=== PATIENT | female | born 1950 | race Caucasian/White ===

== ENCOUNTER 2016-08-11 05:23 | Emergency (ER) | payer BC ==
[~2016-08-11] VITALS: Ht 170.2 cm; Wt 76.0 kg
[2016-08-11 05:33] VITALS: TEMP 36.6; Ht 170.2 cm; Wt 76.0 kg
[2016-08-11] MEDS ORDERED: KETOROLAC TROMETHAMINE 30 MG/ML VIAL IV STA (05:35)
[2016-08-11] MEDS ORDERED: MoRPHine SULFATE 4 MG/ML 1 ML CARP\\VIAL IV ONE (05:45)
[2016-08-11] MEDS ORDERED: SODIUM CHLORIDE 0.9% 1000ML 1,000 ML IV ONE (05:45)
[2016-08-11] MEDS ORDERED: DEXAMETHASONE SOD INJ 10 MG/ML VIAL IV ONE (05:45)
[2016-08-11 06:03] LABS: BASO % 0.2 %; BASO ABS # 0.01 K/uL (0-0.2); COMPLETE YES; EOS % 0.2 %; HEMATOCRIT 41.9 % (37-47); LYMPH % 15.9 %; MEAN CORPUSCULAR HEMOGLOBIN 28.1 pg (25-34); MEAN CORPUSCULAR HGB CONC 32.7 g/dl (32-36); MEAN PLATELET VOLUME 11.6 fL (7.4-10.4); MONO % 3.8 %; NEUT % 79.9 %; PLATELET COUNT 165 K/uL (130-400); RED BLOOD COUNT 4.87 M/uL (4.2-5.4); WHITE BLOOD COUNT 6.27 K/uL (4.8-10.8)
[2016-08-11 06:18] LABS: BUN/CREATININE RATIO 16.5 (10-20); CALCIUM 8.6 mg/dl (8.5-10.1); CREATININE 0.58 mg/dl (0.60-1.20); MAGNESIUM 2.4 mg/dl (1.8-2.4); POTASSIUM 3.8 mmol/L (3.5-5.1)
[2016-08-11 06:29] LABS: ALB/GLOB RATIO 1.5 (0.9-2); THYROID STIMULATING HORMONE 1.18 uIu/ml (0.300-4.500)
[2016-08-11] MEDS ORDERED: CHOL2000 PO (06:33)
[2016-08-11] MEDS ORDERED: CALC-20 PO (06:33)
[2016-08-11 06:50] LABS: LYME DISEASE AB IGG NEG (NEG); LYME DISEASE AB IGM NEG (NEG)
[2016-08-11 06:58] VITALS: BP 134/74; PULSE 67; O2SAT 95
[2016-08-11] MEDS ORDERED: HYDR-5688 PO (07:19)
[2016-08-11] MEDS ORDERED: METH4PAK PO (07:19)
--- NOTE | 2016-08-11 07:35 | DIAGNOSTIC IMAGING REPORT ---
LUMBAR SPINE 5 VIEWS HISTORY: low back pain COMPARISON: None. FINDINGS: There is no fracture. No subluxation. There are 6 lumbar-type vertebral bodies. Mild disc space narrowing at L6 S1. Minimal dextroscoliosis. IMPRESSION: No fracture or subluxation within the lumbar spine. Mild degenerative disc disease at L6 S1. Electronically signed by: Julius Armendariz M.D. 08/11/2016 7:34 AM Dictated Date/Time: 08/11/2016 7:32 AM
--- NOTE | 2016-08-11 07:38 | DIAGNOSTIC IMAGING REPORT ---
CHEST 2 VIEWS ROUTINE HISTORY: abnormal ekg COMPARISON: None. FINDINGS: Question of a small left suprahilar density. The right lung is clear. The heart is normal in size. No pleural effusions. No pneumothorax. IMPRESSION: Question of a small left suprahilar density. Repeat PA and lateral views of the chest with apical lordotic views is recommended for further evaluation. Electronically signed by: Julius Armendariz M.D. 08/11/2016 7:37 AM Dictated Date/Time: 08/11/2016 7:34 AM
--- NOTE | 2016-08-11 22:14 | EMERGENCY ROOM VISIT NOTE ---
History First contact with patient: 05:24 Chief Complaint: BACK PAIN Stated Complaint: BACK PAIN History of Present Illness The patient is a 66 year old female who presents to the Emergency Room with complaints of low back pain worsening over the past one to 2 days. The patient works as a domestic housekeeper, and has had some mild low back pain for the past. She went to bed last evening and was feeling well. She woke up in the night she attempted to get out of bed to use the bathroom, and had significant pain. She asked her to help her out of bed, and he was not able to assist her with getting to the bathroom. Because of this the contacted 911, and EMS arrived on scene. The patient was medicated with 80 g fentanyl and was able to ambulate and use the bathroom without difficulty after analgesia. She was able to ride in the ambulance and now presents for evaluation. The patient does not recall distinct injury or trauma to explain her symptoms. She does not have numbness or paresthesias. She is without flank pain or abdominal pain. The patient was placed on a ekg monitor by EMS in route, and they did notice that she had a sinus arrhythmia. The patient is without any chest pain, chest tightness, or shortness of breath. She considers herself otherwise usually healthy. Review of Systems More than 10 systems were reviewed and otherwise negative with the exception of history of present illness. Past Medical/Surgical History No chronic medical disease Family History No pertinent family history Social History Smoking Status: Never Smoker Housing Status: lives with family Current/Historical Medications Scheduled Calcium Carbonate-Vitamin D (Calcium 600 + D), 1 TAB PO DAILY Cholecalciferol (Vitamin D3), 1 CAP PO DAILY Methylprednisolone (Medrol Dosepak), 1 PKT PO DIRECTED Scheduled PRN Hydrocodone/Acetaminophen 5MG/325MG ([place] 5MG/325MG), 1 TABLET PO Q6 PRN for Pain Allergies Coded Allergies: No Known Allergies (Unverified , 08/11/16) Physical Exam Vital Signs Date Time Temp Pulse Resp B/P Pulse Ox O2 Delivery O2 Flow Rate FiO2 08/11/16 06:58 67 14 134/74 95 Room Air 08/11/16 05:38 Room Air 08/11/16 05:34 60 08/11/16 05:33 36.6 63 18 136/84 94 Room Air Pain Rating (0-10): 3.0 Physical Exam VITALS: Vitals are noted on the nurse's note and reviewed by myself. Vital signs stable. GENERAL: Well-developed, well-nourished, white female, who is in no acute distress and resting comfortably. Patient is cooperative with the examination. HEAD: Normocephalic atraumatic. HEART: Regular rate and rhythm without murmurs gallops or rubs. LUNGS: Clear to auscultation bilaterally without wheezes, rales or rhonchi. No retractions or accessory muscle use. ABDOMEN: Positive normal bowel sounds x 4. Soft, nontender, without masses or organomegaly. No guarding or rebound tenderness. MUSCULOSKELETAL: No muscle atrophy, erythema, or edema noted. Mild lower lumbar spine tenderness with SI joint tenderness. No significant paravertebral spasm. Negative straight leg raise. No saddle paresthesias. Neurovascular status intact distally. NEURO: Patient was alert and oriented to person place and time. CN II through XII grossly intact. Deep tendon reflexes 2+ throughout. Medical Decision & Procedures ER Provider Diagnostic Interpretation: CHEST 2 VIEWS ROUTINE HISTORY: abnormal ekg COMPARISON: None. FINDINGS: Question of a small left suprahilar density. The right lung is clear. The heart is normal in size. No pleural effusions. No pneumothorax. IMPRESSION: Question of a small left suprahilar density. Repeat PA and lateral views of the chest with apical lordotic views is recommended for further evaluation. LUMBAR SPINE 5 VIEWS HISTORY: low back pain COMPARISON: None. FINDINGS: There is no fracture. No subluxation. There are 6 lumbar-type vertebral bodies. Mild disc space narrowing at L6 S1. Minimal dextroscoliosis. IMPRESSION: No fracture or subluxation within the lumbar spine. Mild degenerative disc disease at L6 S1. Laboratory Results 08/11/16 05:45 Red Blood Count 4.87, Mean Corpuscular Volume 86.0, Mean Corpuscular Hemoglobin 28.1, Mean Corpuscular Hemoglobin Concent 32.7, Mean Platelet Volume 11.6, Neutrophils (%) (Auto) 79.9, Lymphocytes (%) (Auto) 15.9, Monocytes (%) (Auto) 3.8, Eosinophils (%) (Auto) 0.2, Basophils (%) (Auto) 0.2, Neutrophils # (Auto) 5.01, Lymphocytes # (Auto) 1.00, Monocytes # (Auto) 0.24, Eosinophils # (Auto) 0.01, Basophils # (Auto) 0.01 08/11/16 05:45 Test 08/11/16 05:45 08/11/16 05:48 White Blood Count 6.27 K/uL (4.8-10.8) Red Blood Count 4.87 M/uL (4.2-5.4) Hemoglobin 13.7 g/dL (12.0-16.0) Hematocrit 41.9 % (37-47) Mean Corpuscular Volume 86.0 fL (80-100) Mean Corpuscular Hemoglobin 28.1 pg (25-34) Mean Corpuscular Hemoglobin Concent 32.7 g/dl (32-36) Platelet Count 165 K/uL (130-400) Mean Platelet Volume 11.6 fL (7.4-10.4) Neutrophils (%) (Auto) 79.9 % Lymphocytes (%) (Auto) 15.9 % Monocytes (%) (Auto) 3.8 % Eosinophils (%) (Auto) 0.2 % Basophils (%) (Auto) 0.2 % Neutrophils # (Auto) 5.01 K/uL (1.4-6.5) Lymphocytes # (Auto) 1.00 K/uL (1.2-3.4) Monocytes # (Auto) 0.24 K/uL (0.11-0.59) Eosinophils # (Auto) 0.01 K/uL (0-0.5) Basophils # (Auto) 0.01 K/uL (0-0.2) RDW Standard Deviation 43.0 fL (36.4-46.3) RDW Coefficient of Variation 13.6 % (11.5-14.5) Immature Granulocyte % (Auto) 0.0 % Immature Granulocyte # (Auto) 0.00 K/uL (0.00-0.02) Anion Gap 8.0 mmol/L (3-11) Est Creatinine Clear Calc Drug Dose 104.2 ml/min Estimated GFR () 112.9 Estimated GFR (Non- 97.4 BUN/Creatinine Ratio 16.5 (10-20) Calcium Level 8.6 mg/dl (8.5-10.1) Magnesium Level 2.4 mg/dl (1.8-2.4) Total Bilirubin 0.3 mg/dl (0.2-1) Aspartate Amino Transf (AST/SGOT) 11 U/L (15-37) Alanine Aminotransferase (ALT/SGPT) 25 U/L (12-78) Alkaline Phosphatase 61 U/L (45-117) Total Protein 6.6 gm/dl (6.4-8.2) Albumin 4.0 gm/dl (3.4-5.0) Globulin 2.6 gm/dl (2.5-4.0) Albumin/Globulin Ratio 1.5 (0.9-2) Lipase 163 U/L (73-393) Thyroid Stimulating Hormone (TSH) 1.180 uIu/ml (0.300-4.500) Lyme Disease IgG Antibody NEG (NEG) Lyme Disease IgM Antibody NEG (NEG) Bedside Troponin I 0.000 ng/ml (0-0.045) Medications Administered Medications (Trade) Dose Ordered Sig/Ike Route Start Time Stop Time Status Last Admin Dose Admin Ketorolac Tromethamine (Toradol Inj) 30 mg NOW STAT IV 08/11/16 05:35 08/11/16 05:37 DC 08/11/16 05:48 30 MG Dexamethasone Sodium Phosphate (Decadron Inj) 10 mg NOW ONCE IV 08/11/16 05:45 08/11/16 05:46 DC 08/11/16 05:49 10 MG Morphine Sulfate 4 mg 4 mg NOW ONCE IV 08/11/16 05:45 08/11/16 05:46 DC 08/11/16 05:49 4 MG Sodium Chloride (Nss 1000ml) 1,000 ml @ 999 mls/hr Q1H1M ONCE IV 08/11/16 05:45 08/11/16 06:45 DC 08/11/16 05:45 999 MLS/HR ECG Change: Sinus bradycardia with 1st degree A-V block Block atrial premature beat Otherwise normal ECG No previous ECGs available Confirmed by ABDULLAHI SANDERSON ([id number]) on 08/11/2016 11:45:06 AM ED Course Physical exam and history were performed. Nursing notes and EMR were reviewed. Patient appears to have low back pain that brought her to the emergency room this evening. On arrival the patient appears comfortable after receiving fentanyl prehospital. The patient did have some atypical findings on her ekg monitor and round. EKG was performed. EKG does show a first-degree AV block with intermittent dropped beat. The patient is not having any chest pain , lightheadedness, dizziness, or palpitations. Because of this I did elect to establish an IV and draw labs. Chest x-ray and lumbar spine x-ray were performed. The patient was hydrated and medicated as above. The patient's blood work is as above and was reviewed. She does not have a significantly elevated white blood cell count, anemia, bandemia, or significant electrolyte imbalance. Lipase and transaminases are nondiagnostic. Troponin 1 is negative. Lumbar spine x-ray does not show significant findings. The patient's chest x-ray was reviewed by myself and my attending, as showing no acute process. On reevaluation the patient felt well and was very happy with discharge home. I did have a lengthy discussion with her regarding her EKG findings, which are not felt to be related to her presenting complaint, but will require appropriate follow-up. 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 I will provide the patient short course of outpatient Vicodin and a Medrol Dosepak for her back pain, which I feel is likely musculoskeletal. She should follow with her PCP in the next few days for evaluation of this. After patient discharge the radiologist read the plain films in the morning, and the patient does have a small density on chest x-ray. Additional films were requested by radiology. We did contact the patient, who was home and was tired and trying to rest. She was invited back to the ER for repeat x-rays, but she preferred to follow with her primary care physician on Friday. This seems reasonable. The patient case was discussed with case management, who will contact the patient's PCP in the morning to arrange follow-up for both the x-ray findings and EKG findings. The patient and family were thoroughly invited back to the ER and were pleased with plan of care. The chart was completed utilizing [employer], Part of [employer]. Grammatical errors, random word insertions, pronoun errors, and incomplete sentences are an occasional consequence of this system due to software limitations, ambient noise, and hardware issues. Any formal questions or concerns about the content, text, or information contained within the body of this dictation should be directly addressed to the provider for clarification. . Medical Decision Differential diagnosis: Etiologies such as musculoskeletal, disc herniation, fracture, aortic disease, metastatic disease, cord compression, discitis, infection, renal colic, gastrointestinal, acute exacerbation of chronic back pain, sciatica, cauda equina, as well as others were entertained. Impression Primary Impression: Low back pain Additional Impression: 1St degree AV block Departure Information Dispostion Home / Self-Care Condition GOOD Prescriptions Hydrocodone/Acetaminophen 5MG/325MG ([place] 5MG/325MG) Tab 1 TABLET PO Q6 Y for Pain, #12 TAB For Initial Treatment Prov: Prabhjot Vides PA-C 08/11/16 Methylprednisolone (MEDROL DOSEPAK) 4 Mg Al[place] 1 PKT PO DIRECTED, #1 PKT Prov: Prabhjot Vides PA-C 08/11/16 Forms HOME CARE DOCUMENTATION FORM, IMPORTANT VISIT INFORMATION Patient Instructions My [facility] Additional Instructions You were seen and evaluated today on an emergency basis only. This is not a substitute for, or an effort to provide, complete comprehensive medical care. It is not possible to recognize and treat all injuries or illnesses in a single emergency department visit. For this reason it is recommended that you followup with your primary care physician this week for ongoing care and evaluation. You may also wish to follow with cardiology for ongoing care. For baseline pain relief you may alternate ibuprofen and acetaminophen every 4 hours for pain control. Take 600 mg ibuprofen (Advil) and then 4 hours later take 1000 mg acetaminophen (Tylenol). Do not take more than 3000 mg acetaminophen in a single day. [place] (hydrocodone/acetaminophen) 5/325 mg every 6 hours as needed for worsening breakthrough pain. Do not drink or drive on [place]. This medication will likely make you tired. Do not take [place] and Tylenol at the same time as both contain acetaminophen. [place] may cause constipation. You may wish to take an [id number] stool softener like Colace if this occurs. Take Medrol Dosepak as prescribed You are welcome to return to the emergency department anytime with new, worsening, or concerning symptoms. Problem Qualifiers
== END 2016-08-11 07:25 | disposition home or self-care (01) ==
LOC: EDBD 05:23 → C.EDA 05:24
DX: M54.5 Low back pain (principal); I44.0 Atrioventricular block, first degree; Z79.899 Other long term (current) drug therapy

== ENCOUNTER → 2016-08-12 | Outpatient (CLI) | payer BC ==
[~2016-08-12] MED LIST: CALC-20 PO; CHOL2000 PO; HYDR-5688 PO; METH4PAK PO
--- NOTE | 2016-08-13 08:20 | DIAGNOSTIC IMAGING REPORT ---
THREE VIEW CHEST CLINICAL HISTORY: Follow-up abnormal chest x-ray. FINDINGS: PA, apical lordotic, and lateral chest radiographs are compared to study dated 08/11/2016. The cardiomediastinal silhouette is unremarkable. The lungs and pleural spaces are clear. No suprahilar density is seen on the apical lordotic view. There is no pneumothorax. The skeletal structures are osteopenic. The bony thorax appears intact. IMPRESSION: 1. No active disease in the chest. 2. No left suprahilar density is identified. The questioned abnormality on yesterday's examination was likely artifactual. Electronically signed by: Fernando Ward M.D. 08/13/2016 8:19 AM Dictated Date/Time: 08/13/2016 8:17 AM
== END | disposition home or self-care (01) ==
LOC: C.RAD 17:19
PROVIDERS: ATTEND Family Medicine
DX: R09.89 Other specified symptoms and signs involving the circulatory and respiratory systems (principal)

== ENCOUNTER → 2016-10-24 | Outpatient (CLI) | payer BC ==
[~2016-10-24] MED LIST changes: -METH4PAK PO
--- NOTE | 2016-10-24 14:56 | MAMMOGRAPHY REPORT ---
BILATERAL DIGITAL SCREENING MAMMOGRAM TOMOSYNTHESIS WITH CAD: 10/24/2016 CLINICAL HISTORY: Routine screening. Patient has no complaints. TECHNIQUE: Breast tomosynthesis in addition to standard 2D mammography was performed. Current study was also evaluated with a Computer Aided Detection (CAD) system. COMPARISON: Comparison is made to exams dated: 10/23/2015 mammogram, 10/03/2014 mammogram, 09/30/2013 ma mmogram, 09/29/2012 mammogram, 09/27/2011 mammogram, and 09/25/2010 mammogram - [facility] [place] BREAST COMPOSITION: The tissue of both breasts is heterogeneously dense, which may obscure small mas ses. FINDINGS: No suspicious masses, calcifications, or areas of architectural distortion are noted in ei ther breast. There has been no significant interval change compared to prior exams. IMPRESSION: ACR BI-RADS CATEGORY 1: NEGATIVE There is no mammographic evidence of malignancy. A 1 year screening mammogram is recommended. The pa tient will receive written notification of the results. Approximately 10% of breast cancers are not detected with mammography. A negative mammographic report should not delay biopsy if a clinically suggestive mass is present. Camelia Kimbrough M.D. ah/:10/24/2016 13:44:38 Resort Manager: Juliet REILLY)(Manpreet), [facility] letter sent: Normal 1/2 BI-RADS Code: ACR BI-RADS Category 1: Negative
== END | disposition home or self-care (01) ==
LOC: C.MAMM 10:15
PROVIDERS: ATTEND Obstetrics & Gynecology
DX: Z12.31 Encounter for screening mammogram for malignant neoplasm of breast (principal)